=== PATIENT | male | born 1955 | race Caucasian/White ===

== ENCOUNTER 2021-06-25 11:22 | Emergency (ER) | payer BC ==
[~2021-06-25] VITALS: Ht 182.9 cm; Wt 157.0 kg
[2021-06-25] MEDS ORDERED: DIPHTH,PERTUSS(ACELL),TET TOX 0.5 ML DISP.SYRIN. VAX IM ONE (11:30)
[2021-06-25] MEDS ORDERED: NEOMY/BACITR/POLYMYXIN OINT PACKET. TP ONE (11:38)
[2021-06-25 11:48] VITALS: BP 155/89
--- NOTE | 2021-06-25 11:50 | PHYS DOC ---
Adult General Chief Complaint Chief Complaint: LACERATION/AVULSION HPI HPI Patient is a 65-year-old male presenting via EMS for laceration. Patient reports he was using a fusion juncture grinder when he lost control and accidentally cut the distal portion of his right anterior thigh. Reports he put immediate pressure and called EMS. On arrival, patient was found to be hemodynamically stable with all bleeding controlled due to applied pressure. A pressure bandage was applied and patient was transported to our facility. Denies any changes in motor or sensory or neuro function, admits mild pain at site of laceration. No obvious retained foreign bodies. He does not think his tetanus is up-to-date. No anticoagulant use Review of Systems Review of Systems Fourteen body systems of review of systems have been reviewed. See HPI for pertinent positives and negative responses, other malone all other systems are negative, non-pertinent or non-contributory Current Medications Current Medications Current Medications Medications (Trade) Dose Ordered Sig/Ro Start Time Stop Time Status Last Admin Dose Admin Diphtheria/ Tetanus/Acell Pertussis (Boostrix) 0.5 ml ONCE ONCE 06/25/21 11:30 06/25/21 11:31 UNV 06/25/21 11:39 0.5 ML Neomycin/ Polymyxin/ Bacitracin (Triple Antibiotic Ointment) 1 pkt STK-MED ONCE 06/25/21 11:38 06/25/21 11:38 DC Allergies Allergies Allergies Coded Allergies Type Severity Reaction Last Updated Verified No Known Drug Allergies 06/25/21 No Physical Exam Physical Exam Constitutional: Well developed, well nourished, no acute distress, non-toxic appearance. HENT: Normocephalic, atraumatic, bilateral external ears normal, oropharynx moist, no oral exudates, nose normal. Eyes: PERRLA, EOMI, conjunctiva normal, no discharge. Neck: Normal range of motion, no tenderness, supple, no stridor. Cardiovascular: Heart rate regular, sinus rhythm, no murmurs rubs or gallops Lungs & Thorax: Bilateral breath sounds clear to auscultation Abdomen: Bowel sounds normal, soft, no tenderness, no masses, no pulsatile masses. Nonsurgical abdomen, no peritoneal signs Skin: Warm, dry, no erythema, no rash. Well approximated horizontal laceration present to distal portion of right anterior thigh involving epidermis, dermis and subcutaneous fat without any obvious muscle body and/or tendon involvement Back: No tenderness, no CVA tenderness. Extremities: No tenderness, no cyanosis, no clubbing, ROM intact, no edema. Neurologic: Alert and oriented X 3, grossly normal motor & sensory function, no focal deficits noted. Psychologic: Affect normal, judgement normal, mood normal. EKG EKG [] Radiology/Procedures Radiology/Procedures [] Heart Score C/O Chest Pain: No Risk Factors: Risk Factors: DM, Current or recent (<one month) smoker, HTN, HLP, family his tory of CAD, obesity. Risk Scores: Risk Factors: DM, Current or recent (<one month) smoker, HTN, HLP, family history of CAD, obesity. Course & Med Decision Making Course & Med Decision Making Patient had a laceration that was repaired in the ED after copious irrigation. After exploration of the wound, there was no evidence of a retained foreign body. No evidence of underlying fracture. TDAP: Updated today Interventions: Defer ABX at this time given location, event time, and patient without surrounding signs of infection. Disposition: Discharge. Patient has been given strict wound return precautions and instructions to follow up with their PCP for a wound recheck and removal. Dragon Disclaimer Dragon Disclaimer This electronic medical record was generated, in whole or in part, using a voice recognition dictation system. Laceration Repair Lac Repair Laceration #1: 3.6 centimeter linear wound. A time out was undertaken to determine that this was the correct patient and the correct procedure for this patient. The patients laceration was prepped and cleansed in the usual fashion. A total of 4.5 cc 2% lidocaine with epinephrine used for anesthetic purposes It was then copiously irrigated with normal saline with high pressure and high volume. The wound was explored in a clear and bloodless field to the base of the wound. There was no evidence of underlying fracture or foreign body. x5 nonabsorbable sutures were placed in a simple interrupted fashion to close the wound. Excellent care was taken to achieve maximal cosmesis. The patient tolerated this procedure well there were no observed nor reported complications. Departure Departure: Impression: Primary Impression: Laceration of right thigh without complication Disposition: HOME / SELF CARE / HOMELESS Condition: STABLE Referrals: VERNON HOUSTON (PCP) Patient Instructions: Laceration Care, Adult Additional Instructions: You were seen for a laceration. Keep the area clean and dry. You should return to the ED or your PCP office to get your sutures removed in 7-10 days. Return to the ED immediately if you develop any signs of infection like increased pain, redness, fever, or purulent (pus) drainage. Do not take baths, submerge the wound, or use a hot tub until your stitches are removed and the wound is healed. KIM TRAMMELL DO Jun 25, 2021 11:50
== END 2021-06-25 12:03 | disposition home or self-care (01) ==
LOC: ER 11:22
DX: S71.111A Laceration without foreign body, right thigh, initial encounter (principal); W29.8XXA Contact with other powered hand tools and household machinery, initial encounter; Y93.89 Activity, other specified; Y92.89 Other specified places as the place of occurrence of the external cause; Y99.8 Other external cause status
CPT/HCPCS: 12002; 82947; 90471; 90715; 99283